=== PATIENT | female | born 1970 | race Caucasian/White ===

== ENCOUNTER → 2017-10-07 | Outpatient (CLI) | payer OTHER | LOC: MC.RAD 13:33 | DX: Z12.31 Encounter for screening mammogram for malignant neoplasm of breast (principal) ==

== ENCOUNTER → 2017-11-15 | Outpatient (CLI) | payer OTHER | LOC: SUN.DIA 08:39 | DX: E11.9 Type 2 diabetes mellitus without complications (principal); I10 Essential (primary) hypertension; E66.9 Obesity, unspecified; Z68.41 Body mass index [BMI] 40.0-44.9, adult; Z71.3 Dietary counseling and surveillance | CPT/HCPCS: G0108 ==

== ENCOUNTER → 2017-11-30 | Outpatient (CLI) | payer OTHER | LOC: SUN.DIA 11:54 | DX: E11.9 Type 2 diabetes mellitus without complications (principal); I10 Essential (primary) hypertension; E66.9 Obesity, unspecified; Z71.3 Dietary counseling and surveillance | CPT/HCPCS: G0109 ==

== ENCOUNTER → 2017-12-06 | Outpatient (CLI) | payer OTHER | LOC: SUN.DIA 14:06 | DX: E11.9 Type 2 diabetes mellitus without complications (principal); I10 Essential (primary) hypertension; E66.9 Obesity, unspecified | CPT/HCPCS: G0108 ==

== ENCOUNTER → 2017-12-07 | Outpatient (CLI) | payer OTHER | LOC: SUN.DIA 10:10 | DX: E11.9 Type 2 diabetes mellitus without complications (principal); I10 Essential (primary) hypertension; E66.9 Obesity, unspecified | CPT/HCPCS: G0109 ==

== ENCOUNTER → 2017-12-14 | Outpatient (CLI) | payer OTHER | LOC: SUN.DIA 08:34 | DX: E11.9 Type 2 diabetes mellitus without complications (principal); E66.9 Obesity, unspecified; I10 Essential (primary) hypertension | CPT/HCPCS: G0109 ==

== ENCOUNTER → 2017-12-21 | Outpatient (CLI) | payer OTHER | LOC: SUN.DIA 11:41 | DX: E11.9 Type 2 diabetes mellitus without complications (principal); I10 Essential (primary) hypertension; E66.9 Obesity, unspecified | CPT/HCPCS: G0109 ==

== ENCOUNTER → 2018-01-31 | Outpatient (CLI) | payer OTHER | LOC: SUN.DIA 09:22 | DX: E11.9 Type 2 diabetes mellitus without complications (principal); I10 Essential (primary) hypertension; E66.9 Obesity, unspecified | CPT/HCPCS: G0108 ==

== ENCOUNTER → 2018-03-27 | Outpatient (CLI) | payer OTHER | LOC: SUN.DIA 09:22 | DX: E11.9 Type 2 diabetes mellitus without complications (principal); I10 Essential (primary) hypertension; E66.9 Obesity, unspecified | CPT/HCPCS: G0108 ==

== ENCOUNTER → 2019-10-24 | Outpatient (CLI) | payer BC | LOC: MC.RAD 16:52 | DX: Z12.31 Encounter for screening mammogram for malignant neoplasm of breast (principal) ==

== ENCOUNTER 2020-02-28 07:30 | Day surgery (SDC) | payer BC ==
[~2020-02-28] VITALS: Ht 160 cm; Wt 104.4 kg
[2020-02-28] MEDS ORDERED: ZOLOFT 50MG50 MG PO (07:52)
[2020-02-28] MEDS ORDERED: GLUCOPHAGE500 MG/TAB PO (07:52)
[2020-02-28] MEDS ORDERED: COZAAR 50MG50 MG/TAB PO (07:52)
[2020-02-28] MEDS ORDERED: JANUVIA 100MG100 MG PO (07:52)
[2020-02-28] MEDS ORDERED: ASPIRIN 81M81 MG/TA2 PO (07:53)
[2020-02-28] MEDS ORDERED: HCTZ 25MG TAB25 MG PO (07:53)
[2020-02-28] MEDS ORDERED: LIPITOR20 MG PO (07:53)
[2020-02-28] MEDS ORDERED: MULTIPLE VITAMI1 TA5 PO (07:54)
[2020-02-28 07:58] VITALS: BP 119/78; PULSE 79; TEMP 97.9
[2020-02-28 09:25] VITALS: BP 126/74; PULSE 90
--- NOTE | 2020-02-28 09:25 | NUR ---
TO BAY 3 PER CART FROM ENDOSCOPY . ALERT ORIENTED X3, TALKING WITH AND STAFF. AMBULATED TO RECLINER WITH ASSIST AND TOLERATED WELL RECEIVED MUFFIN AND CRANBERRY JUICE. DR JARRELL TALKED WITH PRIOR TO PATIENT RETURNING TO .
[2020-02-28 09:40] VITALS: BP 123/78; PULSE 80
--- NOTE | 2020-02-28 09:40 | NUR ---
ATE 100% AND TOLERATED WELL.
--- NOTE | 2020-02-28 09:50 | NUR ---
RECEIVED DISCHARGE INSTRUCTIONS AND VERBALIZED UNDERSTANDING WITH AT BEDSIDE.
--- NOTE | 2020-02-28 10:02 | NUR ---
DISCHARGED PER WC BY NURSING STAFF TO PRIVATE CAR IN CARE OF [facility].
== END 2020-02-28 10:04 | disposition home or self-care (01) ==
LOC: SDCO 07:30
DX: Z12.11 Encounter for screening for malignant neoplasm of colon (principal); D12.4 Benign neoplasm of descending colon; Z79.84 Long term (current) use of oral hypoglycemic drugs; Z88.2 Allergy status to sulfonamides; E78.5 Hyperlipidemia, unspecified; I10 Essential (primary) hypertension; E11.9 Type 2 diabetes mellitus without complications; E66.01 Morbid (severe) obesity due to excess calories; F32.9 Major depressive disorder, single episode, unspecified; E88.81 Metabolic syndrome and other insulin resistance; Z90.49 Acquired absence of other specified parts of digestive tract; Z88.8 Allergy status to other drugs, medicaments and biological substances
CPT/HCPCS: J7120

== ENCOUNTER → 2021-10-08 | Outpatient (CLI) | payer OTHER ==
[~2021-10-08] MED LIST: ASPIRIN 81M81 MG/TA2 PO; COZAAR 50MG50 MG/TAB PO; GLUCOPHAGE500 MG/TAB PO; HCTZ 25MG TAB25 MG PO; JANUVIA 100MG100 MG PO; LIPITOR20 MG PO; MULTIPLE VITAMI1 TA5 PO; ZOLOFT 50MG50 MG PO
== END ==
LOC: MC.RAD 07:03
DX: Z12.31 Encounter for screening mammogram for malignant neoplasm of breast (principal)